=== PATIENT | male | born 1965 | race African-American/Black ===

== ENCOUNTER 2018-06-26 11:02 | Emergency (ER) | payer SELFPAY ==
[~2018-06-26] VITALS: Ht 180.3 cm; Wt 71.0 kg
[~2018-06-26 11:02] MED LIST: NO MEDS
[2018-06-26 12:03] LABS: IMMATURE GRANULOCYTES 0.3 % (0.0-5.0); MEAN CORPUSCULAR HGB 31.4 pG CALC (26.0-32.0); NEUT# 2.26 thou/uL (1.82-7.42); RED BLOOD COUNT 4.78 mill/uL (4.70-6.10); RED CELL DISTRI WIDTH 14.6 % (11.5-15.5)
[2018-06-26 12:07] LABS: HEMATOCRIT 45.5 % (39.0-50.0); MEAN CELL VOLUME 95.2 fL CALC (80.0-100.0)
[2018-06-26 12:16] LABS: INFLUENZA A NONE DETECTED (NONE DETECT); INFLUENZA B NONE DETECTED (NONE DETECT)
[2018-06-26 12:27] LABS: ALBUMIN 4.7 g/dL (3.2-5.0); ALKALINE PHOSPHATASE 39 u/l (38-126); ANION GAP 16 (6-22 (CALC)); BILIRUBIN, TOTAL 0.4 mg/dL (0.0-1.4); BUN 14 mg/dL (9-20); BUN/CREATININE RATIO 19 (12-20 (CALC)); CARBON DIOXIDE 26 mmol/l (22-30); CHLORIDE 104 mmol/l (95-108); CREATININE 0.8 mg/dL (0.7-1.3); GFR > 60 ML/MIN (>=60 (CALC)); GFR FOR AFR.AMER. > 60 ML/MIN (>=60 (CALC)); POTASSIUM 4.3 mmol/l (3.5-5.1); SGOT/AST 39 u/l (17-59); SGPT/ALT 29 u/l (21-72); SODIUM 142 mmol/l (137-146); TOTAL PROTEIN 8.7 g/dL (6.3-8.2)
[2018-06-26] MEDS ORDERED: ZPAK PO (12:47)
[2018-06-26] MEDS ORDERED: PREDNISONE50 MG PO (12:47)
[2018-06-26] MEDS ORDERED: PROAIR HFA108 MCG/AC PO (12:48)
[2018-06-26 13:06] VITALS: BP 121/78
== END 2018-06-26 13:40 | disposition home or self-care (01) | DRG 192 ==
LOC: ED 11:02
PROVIDERS: Family Medicine
DX: J44.1 Chronic obstructive pulmonary disease with (acute) exacerbation (principal); J02.0 Streptococcal pharyngitis; Z86.11 Personal history of tuberculosis

== ENCOUNTER 2018-12-12 09:26 | Emergency (ER) | payer SELFPAY ==
[~2018-12-12] VITALS: Ht 180.3 cm; Wt 60.0 kg
[~2018-12-12 09:26] MED LIST changes: +PREDNISONE50 MG PO; +PROAIR HFA108 MCG/AC PO; +ZPAK PO
[2018-12-12 09:52] LABS: HEMOGLOBIN 15.1 g/dl (14.0-18.0); IMMATURE GRANULOCYTES 0.3 % (0.0-5.0); MEAN CELL VOLUME 92.6 fL CALC (80.0-100.0); MEAN CORPUSCULAR HGB 30.4 pG CALC (26.0-32.0); MEAN CORPUSCULAR HGB CONC 32.8 g/L CALC (32.0-36.0); NEUT# 1.91 thou/uL (1.82-7.42); RED BLOOD COUNT 4.97 mill/uL (4.70-6.10); RED CELL DISTRI WIDTH 14.6 % (11.5-15.5)
[2018-12-12] MEDS ORDERED: ZPAK PO (11:00)
[2018-12-12] MEDS ORDERED: PREDNISONE50 MG PO (11:00)
[2018-12-12 11:04] VITALS: BP 127/86
[2018-12-12 11:15] LABS: ANION GAP 17 (6-22 (CALC)); BUN 10 mg/dL (9-20); BUN/CREATININE RATIO 13 (12-20 (CALC)); CARBON DIOXIDE 26 mmol/l (22-30); CHLORIDE 100 mmol/l (95-108); CREATININE 0.7 mg/dL (0.7-1.3); GFR > 60 ML/MIN (>=60 (CALC)); GFR FOR AFR.AMER. > 60 ML/MIN (>=60 (CALC)); POTASSIUM 3.8 mmol/l (3.5-5.1); SODIUM 139 mmol/l (137-146)
== END 2018-12-12 11:24 | disposition home or self-care (01) | DRG 192 ==
LOC: ED 09:26
PROVIDERS: Family Medicine
DX: J44.1 Chronic obstructive pulmonary disease with (acute) exacerbation (principal); R06.02 Shortness of breath; Z91.19 Patient's noncompliance with other medical treatment and regimen; R94.31 Abnormal electrocardiogram [ECG] [EKG]